=== PATIENT | female | born 1990 | race African-American/Black ===

== ENCOUNTER 2016-06-01 12:34 | Emergency (ER) | payer MEDICAID ==
[2016-06-01 12:34] VITALS: BMI 34.9
[2016-06-01 12:36] VITALS: BP 147/74; PULSE 117; TEMP 97.6
[2016-06-01 12:52] LABS: LEUKOCYTES/URINE TRACE (NEGATIVE); NITRITE/URINE NEG (NEGATIVE); URINE OCCULT BLOOD NEG (NEG/TRACE)
--- NOTE | 2016-06-01 13:07 | EDPRACDOC ---
- General Information Stated Complaint: ABSCESS TOOTH/ LOWER BACK WITH POS PREG TEST Time Seen by Provider: 06/01/16 12:47 Home Medications: Home Medications Oxycodone HCl/Acetaminophen [Percocet 5-325 mg Tablet] 1 - 2 tab PO Q4H PRN #14 tab 01/12/16 Acetaminophen [Tylenol Extra Strength] 500 mg PO Q6 #14 tablet 06/01/16 Amoxicillin Trihydrate [Amoxicillin] 500 mg PO TID #30 tab 06/01/16 Vits W-Ca,Fe,FA(<1Mg) [] 1 each PO DAILY #30 tablet 06/01/16 Allergies/Adverse Reactions: Allergies Allergy/AdvReac Type Severity Reaction Status Date / Time No Known Allergies Allergy Verified 01/12/16 08:47 - History of Present Illness Onset: 3 DAYS HPI: PT PRESENTS TODAY WITH MULTIPLE COMPLAINTS. ABSCESSED TOOTH X 3 DAYS, NO FEVER. BELIEVES SHE MAY BE , SHE IS LATE ON HER MENSTRUAL CYCLE AND SHE IS HAVING LOWER ABD CRAMPING AND LOW BACK PAIN. DENIES FEVER, N/V/D, VAGINAL BLEEDING/DISCHARGE. . Reported Tooth Problem: 20 Pain Severity: Reports: Moderate Relevant History of: Reports: None Modifying Factors: improves with: Cold, Chewing Associated Signs and Symptoms: Reports: None ED Past Medical History - History Reviewed Yes Nurses notes reviewed and agree except as marked - Patient Medical History Psychological History: Denies: Depression - Social Medical History Smoking Status: Never smoker EDM Review of Systems - Review of Systems ROS Negative Except as Marked: Yes All systems reviewed and were negative except as marked Constitutional: No Symptoms Reported Ears: No Symptoms Reported Throat: No Symptoms Reported Nose: No Symptoms Reported Mouth: Tooth Pain Respiratory: No Symptoms Reported Cardiovascular: No Symptoms Reported Gastrointestinal: Pain Genitourinary: Amenorrhea Neurological: No Symptoms Reported Musculoskeletal: No Symptoms Reported Integumentary: No Symptoms Reported - Physical Exam Constitutional: Alert (Awake), No apparent distress Oriented to: Time, Person, Place Last recorded Vital Signs: Last Vital Signs Temp 97.6 F 06/01/16 12:35 Pulse 117 06/01/16 12:35 Resp 18 06/01/16 12:35 BP 147/74 06/01/16 12:35 Pulse Ox 96 06/01/16 12:35 Oxygen Pulse Oxygen Saturation 96 O2 Device Room Air Oxygen Flow Rate Fraction of Inspired Oxygen ( FIO2) - HEENT Head: Swelling (NOTED TOOTH ABSCESS TO LEFT LOWER TOOTH) Eye Exam: Normal Oropharynx: Other (ABSCESS TOOTH; NO POINTING) Tympanic Membrane: Normal ENT EAC: Normal Nose: No Symptoms Reported Neck: Normal, Denies Pain, Midline - Respiratory/Cardiovascular Respiratory: Normal - CTA Cardiovascular: Normal - GI Auscultation: Normal Palpation: Normal Tenderness: Non tender - Musculoskeletal Back: Normal Extremities: Normal - Integumentary Skin: Normal Lymphatics: Normal - Neurologic Cerebellar: Normal Mood Description: Normal Thought: Coherent Perception: Normal ED Tooth Problem Exam - HEENT Face: Swelling Teeth: Left: Molar-2 Lower (ABSCESS) Gingiva: Normal Palate: Normal Mouth Range of Motion: Normal Sinuses: Normal Oropharynx: Normal Neck: Normal, Denies Pain, Midline - Results Urine Color Yellow 06/01/16 12:41 Urine Clarity Sl cldy 06/01/16 12:41 Urine pH 7.0 (5.0-8.0) 06/01/16 12:41 Ur Specific [place] 1.010 (1.003-1.035) 06/01/16 12:41 Urine Protein 1+ (NEG/TRACE) H 06/01/16 12:41 Urine Glucose (UA) Neg (NEGATIVE) 06/01/16 12:41 Urine Ketones Neg (NEGATIVE) 06/01/16 12:41 Urine Occult Blood Neg (NEG/TRACE) 06/01/16 12:41 Urine Nitrite Neg (NEGATIVE) 06/01/16 12:41 Urine Bilirubin Neg (NEGATIVE) 06/01/16 12:41 Urine Urobilinogen <2.0 MG/DL (0-1) 06/01/16 12:41 Ur Leukocyte Esterase Trace (NEGATIVE) H 06/01/16 12:41 Urine RBC 10-20 (0-5) H 06/01/16 12:41 Urine WBC 10-20 (0-5) H 06/01/16 12:41 Ur Epithelial Cells 2+ 06/01/16 12:41 Urine Bacteria 3+ (NEG/FEW) H 06/01/16 12:41 Urine Mucus Mod (NEG/OCC) H 06/01/16 12:41 Urine Test Pos (NEGATIVE) H 06/01/16 12:41 Lab Results 06/01/16 06/01/16 12:41 12:41 Urine Color Yellow Urine Clarity Sl cldy Urine pH 7.0 Ur Specific [place] 1.010 Urine Protein 1+ H Urine Glucose (UA) Neg Urine Ketones Neg Urine Occult Blood Neg Urine Nitrite Neg Urine Bilirubin Neg Urine Urobilinogen <2.0 Ur Leukocyte Esterase Trace H Urine RBC 10-20 H Urine WBC 10-20 H Ur Epithelial Cells 2+ Urine Bacteria 3+ H Urine Mucus Mod H Urine Test Pos H Decision Time to Discharge: 13:05 - Departure Disposition: Home Condition: Good Final Diagnosis: Tooth abscess Qualifiers: Weeks of gestation: unspecified Qualified Code(s): Z33.1 - state, incidental Urinary tract infection Qualifiers: Urinary tract infection type: acute cystitis Hematuria presence: with hematuria Qualified Code(s): N30.01 - Acute cystitis with hematuria Instructions: Urinary Tract Infection in Women (ED), Dysuria Education/Counseling Given To: Patient Education/Counseling Given Regarding: Diagnosis, Treatment, Follow Up Referrals: None,No Provider [Primary Care Provider] - One Week Aiden Santana MD [Staff Physician] - One Week SHIRA ABAD [NonStaff] - One Week Prescriptions: New Acetaminophen [Tylenol Extra Strength] 500 mg PO Q6 #14 tablet Amoxicillin Trihydrate [Amoxicillin] 500 mg PO TID #30 tab Vits W-Ca,Fe,FA(<1Mg) [] 1 each PO DAILY #30 tablet No Action Oxycodone HCl/Acetaminophen [Percocet 5-325 mg Tablet] 1 - 2 tab PO Q4H PRN # 14 tab PRN Reason: Pain Additional Instructions: 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
== END 2016-06-01 13:16 | disposition home or self-care (01) ==
LOC: EDMC 12:34
DX: O23.10 Infections of bladder in pregnancy, unspecified trimester (principal); N30.01 Acute cystitis with hematuria; Z3A.00 Weeks of gestation of pregnancy not specified; O26.899 Other specified pregnancy related conditions, unspecified trimester; K04.7 Periapical abscess without sinus
CPT/HCPCS: 81001; 81025; 87086; 99282